=== PATIENT | male | born 1950 | race Hispanic/Latino ===

== ENCOUNTER 2017-09-18 17:46 | Inpatient (IN) | payer MEDICARE, OTHER ==
[2017-09-18] MEDS ORDERED: Sodium Chloride 0.9% 1,000 ML IV STA (18:16)
--- NOTE | 2017-09-18 18:28 | RAD ---
HISTORY: fever chest pain COMPARISON: No prior. FINDINGS: LUNGS: The lungs are well inflated and clear. There is bibasilar atelectasis. No lobar pneumonia. PLEURA: No significant pleural effusion identified, no pneumothorax apparent. CARDIOVASCULAR: Normal. OSSEOUS STRUCTURES: No significant abnormalities. VISUALIZED UPPER ABDOMEN: Normal. OTHER FINDINGS: None. IMPRESSION: No active pulmonary disease.
[2017-09-18 18:30] LABS: BASO # 0.1 K/uL (0.0-0.2); BASO % 0.6 % (0.0-2.0); EOS # 0.2 K/uL (0.0-0.7); EOS % 1.4 % (0.0-4.0); LYMPH # 1.2 K/uL (1.0-4.3); LYMPH % 11.4 % (20.0-40.0); MEAN CELL VOLUME 101.7 fl (80.0-94.0); MEAN CORPUSCULAR HEMOGLOBIN 33.9 pg (27.0-31.0); MEAN CORPUSCULAR HGB CONC 33.3 g/dL (33.0-37.0); MONO # 1.6 K/uL (0.0-0.8); MONO % 14.8 % (0.0-10.0); NEUT # 7.6 K/uL (1.8-7.0); NEUT % 71.8 % (50.0-75.0); RED CELL DISTRIBUTION WIDTH 13.5 % (11.5-14.5); WHITE BLOOD COUNT 10.5 K/uL (4.8-10.8)
[2017-09-18 18:42] LABS: VENOUS BLOOD GAS BASE EXCESS 1.7 mmol/L (0.0-2.0); VENOUS BLOOD GAS PCO2 45 mmHg (40-60); VENOUS BLOOD PH 7.39 (7.32-7.43)
[2017-09-18 18:42] LABS: ALB/GLOB RATIO 1.4 (1.0-2.1); ALKALINE PHOSPHATASE 78 U/L (38-126); ALT/SGPT 38 U/L (21-72); AST/SGOT 22 U/L (17-59); BLOOD UREA NITROGEN 15 mg/dl (9-20); CARBON DIOXIDE 25 mmol/L (22-30); CHLORIDE 104 mmol/L (98-107); GFR AFRICAN-AMERICAN > 60; GLUCOSE,RANDOM 109 mg/dL (75-110); MAGNESIUM 2.1 MG/DL (1.6-2.3); PHOSPHOROUS 2.6 mg/dl (2.5-4.5); POTASSIUM 3.9 MMOL/L (3.6-5.0); SODIUM 137 mmol/l (132-148); TOTAL PROTEIN 7.7 G/DL (6.3-8.2)
--- NOTE | 2017-09-18 18:48 | ED PDOC ---
HPI: CCC, URI, Sore Throat Time Seen by Provider: 09/18/17 18:04 Chief Complaint (Nursing): Palpitations Chief Complaint (Provider): Tachycardia History Per: Patient History/Exam Limitations: no limitations Onset/Duration Of Symptoms: Days (x1) Current Symptoms Are (Timing): Still Present Location Of Pain: Throat (sore) Associated Symptoms: Fever, Chills, Sore Throat, Cough, Other (chest congestion , runny nose, body aches) Ear Symptoms: Bilateral: None Pain Scale Rating Of: 0 Additional Complaint(s): Edwin Galeano is a 67 year old male, with a past medical history of A-fib, who presents to the emergency department complaining of tachycardia, cough, sore throat, runny nose, and chest congestion onset since last night. Patient states symptoms have been worsening since onset. Patient reports going to work today when she began feeling weak and tired with body aches. Patient presented to urgent care who found him to have a fever and rapid heart rate. Patient has a history of A-fib but underwent ablation x6 weeks ago. Afterwards, he did not need to be in any rate controlling medications. This is the first episode of rapid heart rate since the procedure was done. No further medical complaints. PMD:Antony Brewster Past Medical History Reviewed: Historical Data, Nursing Documentation, Vital Signs Vital Signs: Last Vital Signs Temp 98 F 09/20/17 08:00 Pulse 75 09/20/17 09:00 Resp 20 09/20/17 08:00 BP 119/73 09/20/17 08:46 Pulse Ox 96 09/20/17 08:00 - Medical History PMH: Atrial Fibrillation - Surgical History Surgical History: No Surg Hx - Family History Family History: States: Unknown Family Hx - Social History Current smoker - smoking cessation education provided: No Drugs: Denies - Home Medications Home Medications: Ambulatory Orders Medication Instructions Recorded Apixaban [Eliquis] 5 mg PO BID 09/18/17 Amiodarone [Cordarone] 200 mg PO DAILY 30 Days #30 tab 09/20/17 Oseltamivir [Tamiflu Cap] 75 mg PO BID #6 cap 09/20/17 - Allergies Allergies/Adverse Reactions: Allergies Allergy/AdvReac Type Severity Reaction Status Date / Time No Known Allergies Allergy Verified 09/18/17 17:52 Review of Systems ROS Statement: Except As Marked, All Systems Reviewed And Found Negative (and as per HPI) Constitutional: Positive for: Fever, Chills, Malaise, Other (body aches) ENT: Positive for: Nose Discharge Respiratory: Positive for: Cough, Other (chest congestion) Physical Exam - Reviewed Nursing Documentation Reviewed: Yes Vital Signs Reviewed: Yes - Physical Exam Appears: Positive for: Non-toxic, In Acute Distress Head Exam: Positive for: ATRAUMATIC, NORMOCEPHALIC Skin: Positive for: Warm, Dry Eye Exam: Positive for: EOMI, PERRL ENT: Positive for: Pharynx Is (tacky mucus membranes). Negative for: Pharyngeal Erythema, Tonsillar Exudate, Tonsillar Swelling Neck: Positive for: Painless ROM, Supple Cardiovascular/Chest: Positive for: Tachycardia. Negative for: Edema, Murmur Respiratory: Positive for: Normal Breath Sounds. Negative for: Wheezing, Respiratory Distress Gastrointestinal/Abdominal: Positive for: Soft. Negative for: Tenderness Back: Positive for: Normal Inspection. Negative for: Muscle Spasm Extremity: Positive for: Normal ROM. Negative for: Pedal Edema, Deformity Lymphatic: Negative for: Adenopathy Neurologic/Psych: Positive for: Alert. Negative for: Motor/Sensory Deficits - Laboratory Results Result Diagrams: 09/18/17 18:26 09/18/17 18:26 - ECG O2 Sat by Pulse Oximetry: 99 (RA) Pulse Ox Interpretation: Normal - Critical Care Total Time (In Min): 30 Documented Critical Care: Time excludes all time spent performint seperately billable procedures Medical Decision Making Medical Decision Making: Initial Impression: tachycardia and fever. Differential diagnosis includes but not limited to: influenza, Pneumonia, dehydration, rapid A-fib with RVR. Initial Plan: --B-Type Natriuretic Peptide --Comp Metabolic Panel --Magnesium --Phosphorus --Troponin I --CBC w/ differential --PTT --PT --Tylenol 975 mg PO --NS IV 1,000 ml @ 1,000 mls/hr --Chest portable [RAD] --Tamiflu Cap 75 mg PO --Blood culture --Influenza A B --Rapid Strep Group A Antigen --reevaluation -Will treat tachycardia with fluids and Tylenol. Reassess for persistent tachy. 18:24 Chest X-Ray FINDINGS: LUNGS: The lungs are well inflated and clear. There is bibasilar atelectasis. No lobar pneumonia. PLEURA: No significant pleural effusion identified, no pneumothorax apparent. CARDIOVASCULAR: Normal. OSSEOUS STRUCTURES: No significant abnormalities. VISUALIZED UPPER ABDOMEN: Normal. OTHER FINDINGS: None. IMPRESSION: No active pulmonary disease. Pt's HR still persistently elevated in atrial fib. Need to start cardizem drip. 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 Pt to be hospitalized. EDUARDO pt findings and plan of care. EDUARDO Iniguez Hospitalist admitting for PMD Dr Brewster Scribe Attestation: Documented by Clark Ivan, acting as a scribe for Julia Mc MD Provider Scribe Attestation: All medical record entries made by the Scribe were at my direction and personally dictated by me. I have reviewed the chart and agree that the record accurately reflects my personal performance of the history, physical exam, medical decision making, and the department course for this patient. I have also personally directed, reviewed, and agree with the discharge instructions and disposition. Disposition - Clinical Impression Clinical Impression: Flu-like symptoms, Atrial fibrillation with RVR Counseled Patient/Family Regarding: Studies Performed, Diagnosis - Disposition Disposition Time: 20:00 Condition: FAIR - Pt Status Changed To: Hospital Disposition Of: Observation - POA Present On Arrival: None
[2017-09-18 19:00] LABS: PARTIAL THROMBOPLASTIN TIME 41.2 Seconds (25.6-37.1)
--- NOTE | 2017-09-18 20:16 | CP.PCM.HP ---
History of Present Illness - History of Present Illness History of Present Illness: CC: A fib with RVR, flu-like symptoms HPI: This is a 67 y/o male with MHx significant for A fib s/p GREYSON about 6 weeks ago. Patient has not had any A fib symptoms -- palpitations, etc. since that time. Since yesterday, he developed flu-like symptoms including sore throat, malaise, fevers, and myalgias. He went to the pharmacy to get Tamiflu, and there , was found to be in A fib with RVR and was referred to the ER. Denies any CP, SOB. Denies n/v/d. Patient did have the flu shot this year. PCP: [facility] Installer: Vipul ROS: 14 systems reviewed, negative other than HPI MHx: A fib SHx: Radiofrequency ablation 6 weeks prior Allergies: NKDA Medications: As per med rec Family Hx: Reviewed, no relevant findings Social Hx: lives nearby, no tobacco, drinks 3-4 drinks daily Surrogate: Present on Admission - Present on Admission Any Indicators Present on Admission: No Past Patient History - Past Social History Drugs: Denies - CARDIAC Hx Atrial Fibrillation: Yes Meds Allergies/Adverse Reactions: Allergies Allergy/AdvReac Type Severity Reaction Status Date / Time No Known Allergies Allergy Verified 09/18/17 17:52 Physical Exam - Constitutional Appears: No Acute Distress - Head Exam Head Exam: ATRAUMATIC, NORMOCEPHALIC - Eye Exam Eye Exam: EOMI, PERRL - ENT Exam ENT Exam: Mucous Membranes Moist - Neck Exam Neck exam: Positive for: Full Rom - Respiratory Exam Respiratory Exam: Clear to Auscultation Bilateral, NORMAL BREATHING PATTERN - Cardiovascular Exam Cardiovascular Exam: Tachycardia, +S1, +S2 - GI/Abdominal Exam GI & Abdominal Exam: Normal Bowel Sounds, Soft - Extremities Exam Extremities exam: Positive for: full ROM, normal inspection - Neurological Exam Neurological exam: Alert, CN II-XII Intact, Oriented x3 - Psychiatric Exam Psychiatric exam: Normal Affect, Normal Mood Results - Vital Signs Recent Vital Signs: Last Vital Signs Temp 100.8 F H 09/18/17 18:20 Pulse 144 H 09/18/17 17:52 Resp 16 09/18/17 17:52 BP 132/71 09/18/17 17:52 Pulse Ox 99 09/18/17 19:05 - Labs Result Diagrams: 09/18/17 18:26 09/18/17 18:26 Labs: Laboratory Results - last 24 hr 09/18/17 09/18/17 09/18/17 18:15 18:15 18:26 WBC 10.5 RBC 4.43 Hgb 15.0 Hct 45.0 MCV 101.7 H MCH 33.9 H MCHC 33.3 RDW 13.5 Plt Count 174 MPV 9.0 Neut % (Auto) 71.8 Lymph % (Auto) 11.4 L Glades % (Auto) 14.8 H Eos % (Auto) 1.4 Baso % (Auto) 0.6 Neut # 7.6 H Lymph # 1.2 Glades # 1.6 H Eos # 0.2 Baso # 0.1 PT INR APTT pO2 VBG pH VBG pCO2 VBG HCO3 VBG Total CO2 VBG O2 Sat (Calc) VBG Base Excess VBG Potassium Glucose Lactate FiO2 Sodium Potassium Chloride Carbon Dioxide Anion Gap BUN Creatinine Est GFR ( Amer) Est GFR (Non-Af Amer) Random Glucose Calcium Phosphorus Magnesium Total Bilirubin AST ALT Alkaline Phosphatase Troponin I NT-Pro-B Natriuret Pep Total Protein Albumin Globulin Albumin/Globulin Ratio Venous Blood Potassium Influenza Typ A,B (EIA) Negative for flu a/b Grp A Beta Strep Ag Negative 09/18/17 09/18/17 09/18/17 18:26 18:26 18:30 WBC RBC Hgb Hct MCV MCH MCHC RDW Plt Count MPV Neut % (Auto) Lymph % (Auto) Glades % (Auto) Eos % (Auto) Baso % (Auto) Neut # Lymph # Glades # Eos # Baso # PT 13.4 H INR 1.2 APTT 41.2 H pO2 17 L VBG pH 7.39 VBG pCO2 45 VBG HCO3 24.2 VBG Total CO2 28.6 H VBG O2 Sat (Calc) 35.2 L VBG Base Excess 1.7 VBG Potassium 3.8 Glucose 115 H Lactate 1.1 FiO2 21.0 Sodium 137 136.0 Potassium 3.9 Chloride 104 104.0 Carbon Dioxide 25 Anion Gap 12 BUN 15 Creatinine 0.8 Est GFR ( Amer) > 60 Est GFR (Non-Af Amer) > 60 Random Glucose 109 Calcium 9.0 Phosphorus 2.6 Magnesium 2.1 Total Bilirubin 1.0 AST 22 ALT 38 Alkaline Phosphatase 78 Troponin I < 0.0120 NT-Pro-B Natriuret Pep 410 Total Protein 7.7 Albumin 4.5 Globulin 3.2 Albumin/Globulin Ratio 1.4 Venous Blood Potassium 3.8 Influenza Typ A,B (EIA) Grp A Beta Strep Ag Assessment & Plan (1) Atrial fibrillation with RVR Assessment and Plan: 67 y/o male with flu-like symptoms and A fib with RVR even after recent GREYSON. 1) A fib with RVR -Admit tele -Serial trops -AM EKG -On dilt gtt -Continue Eliquis -Consult Vipul in AM 2) Flu like symptoms, flu negative as of now -Given symptoms, will continue tamiflu for now 3) DVT PPx -- on Eliquis Status: Acute (2) Flu-like symptoms Status: Acute (3) DVT prophylaxis Status: Acute
[2017-09-18] MEDS ORDERED: diltiaZEM 100 mg Vial ( ADD-VANTAGE ) IV ONE (20:35)
--- NOTE | 2017-09-19 10:55 | CP.PCM.CON ---
History of Present Illness - History of Present Illness History of Present Illness: 67 yo male with history of paroxysmal atrial fibrillation s/p afib ablation at [facility] 6 wks ago. Pt with recurrent rapid atrial fibrillation in the setting of fever and URI. Denies cp , sob or leg swelling. Past Patient History - Past Medical History & Family History Past Medical History?: Yes - Past Social History Smoking Status: Former Smoker - CARDIAC Hx Cardiac Disorders: Yes Hx Atrial Fibrillation: Yes - PULMONARY Hx Respiratory Disorders: No - NEUROLOGICAL Hx Neurological Disorder: No - HEENT Hx HEENT Problems: No - RENAL Hx Chronic Kidney Disease: No - ENDOCRINE/METABOLIC Hx Endocrine Disorders: No - HEMATOLOGICAL/ONCOLOGICAL Hx Blood Disorders: No Hx AIDS: No Hx Human Immunodeficiency Virus (HIV): No - INTEGUMENTARY Hx Dermatological Problems: No - MUSCULOSKELETAL/RHEUMATOLOGICAL Hx Musculoskeletal Disorders: No Hx Falls: No - GASTROINTESTINAL Hx Gastrointestinal Disorders: No - GENITOURINARY/GYNECOLOGICAL Hx Genitourinary Disorders: No - PSYCHIATRIC Hx Psychophysiologic Disorder: No Hx Substance Use: No - SURGICAL HISTORY Hx Surgeries: Yes (Radio Frequency Ablation) - ANESTHESIA Hx Anesthesia: Yes Hx Anesthesia Reactions: No Meds Allergies/Adverse Reactions: Allergies Allergy/AdvReac Type Severity Reaction Status Date / Time No Known Allergies Allergy Verified 09/18/17 17:52 - Medications Medications: Current Medications Apixaban (Eliquis) 5 mg PO BID [facility] PRN Reason: Protocol Last Admin: 09/19/17 09:29 Dose: 5 mg Diltiazem HCl (Cardizem) 30 mg PO TID [facility] Last Admin: 09/19/17 09:27 Dose: 30 mg Diltiazem HCl 100 mg/ Sodium (Chloride) 100 mls @ 5 mls/hr IV .Q20H ONE; 5 MG/ HR PRN Reason: Protocol Stop: 09/19/17 16:14 Last Admin: 09/18/17 20:52 Dose: 5 mg/hr, 5 mls/hr Oseltamivir Phosphate (Tamiflu Cap) 75 mg PO BID [facility] PRN Reason: Protocol Last Admin: 09/19/17 09:29 Dose: 75 mg Physical Exam - Head Exam Head Exam: NORMAL INSPECTION - ENT Exam ENT Exam: Mucous Membranes Moist - Respiratory Exam Respiratory Exam: Clear to Auscultation Bilateral - Cardiovascular Exam Cardiovascular Exam: REGULAR RHYTHM - GI/Abdominal Exam GI & Abdominal Exam: Normal Bowel Sounds - Extremities Exam Extremities exam: Positive for: normal inspection Results - Vital Signs Recent Vital Signs: Last Vital Signs Temp 98.5 F 09/19/17 08:00 Pulse 86 09/19/17 09:27 Resp 20 09/19/17 08:00 BP 107/60 09/19/17 09:27 Pulse Ox 95 09/19/17 08:00 - Labs Result Diagrams: 09/18/17 18:26 09/18/17 18:26 Labs: Laboratory Results - last 24 hr 09/18/17 09/18/17 09/18/17 18:15 18:15 18:26 WBC 10.5 RBC 4.43 Hgb 15.0 Hct 45.0 MCV 101.7 H MCH 33.9 H MCHC 33.3 RDW 13.5 Plt Count 174 MPV 9.0 Neut % (Auto) 71.8 Lymph % (Auto) 11.4 L Rice % (Auto) 14.8 H Eos % (Auto) 1.4 Baso % (Auto) 0.6 Neut # 7.6 H Lymph # 1.2 Rice # 1.6 H Eos # 0.2 Baso # 0.1 PT INR APTT pO2 VBG pH VBG pCO2 VBG HCO3 VBG Total CO2 VBG O2 Sat (Calc) VBG Base Excess VBG Potassium Glucose Lactate FiO2 Sodium Potassium Chloride Carbon Dioxide Anion Gap BUN Creatinine Est GFR ( Amer) Est GFR (Non-Af Amer) Random Glucose Calcium Phosphorus Magnesium Total Bilirubin AST ALT Alkaline Phosphatase Troponin I NT-Pro-B Natriuret Pep Total Protein Albumin Globulin Albumin/Globulin Ratio Venous Blood Potassium Influenza Typ A,B (EIA) Negative for flu a/b Grp A Beta Strep Ag Negative 09/18/17 09/18/17 09/18/17 18:26 18:26 18:30 WBC RBC Hgb Hct MCV MCH MCHC RDW Plt Count MPV Neut % (Auto) Lymph % (Auto) Rice % (Auto) Eos % (Auto) Baso % (Auto) Neut # Lymph # Rice # Eos # Baso # PT 13.4 H INR 1.2 APTT 41.2 H pO2 17 L VBG pH 7.39 VBG pCO2 45 VBG HCO3 24.2 VBG Total CO2 28.6 H VBG O2 Sat (Calc) 35.2 L VBG Base Excess 1.7 VBG Potassium 3.8 Glucose 115 H Lactate 1.1 FiO2 21.0 Sodium 137 136.0 Potassium 3.9 Chloride 104 104.0 Carbon Dioxide 25 Anion Gap 12 BUN 15 Creatinine 0.8 Est GFR ( Amer) > 60 Est GFR (Non-Af Amer) > 60 Random Glucose 109 Calcium 9.0 Phosphorus 2.6 Magnesium 2.1 Total Bilirubin 1.0 AST 22 ALT 38 Alkaline Phosphatase 78 Troponin I < 0.0120 NT-Pro-B Natriuret Pep 410 Total Protein 7.7 Albumin 4.5 Globulin 3.2 Albumin/Globulin Ratio 1.4 Venous Blood Potassium 3.8 Influenza Typ A,B (EIA) Grp A Beta Strep Ag 09/19/17 04:30 WBC RBC Hgb Hct MCV MCH MCHC RDW Plt Count MPV Neut % (Auto) Lymph % (Auto) Rice % (Auto) Eos % (Auto) Baso % (Auto) Neut # Lymph # Rice # Eos # Baso # PT INR APTT pO2 VBG pH VBG pCO2 VBG HCO3 VBG Total CO2 VBG O2 Sat (Calc) VBG Base Excess VBG Potassium Glucose Lactate FiO2 Sodium Potassium Chloride Carbon Dioxide Anion Gap BUN Creatinine Est GFR ( Amer) Est GFR (Non-Af Amer) Random Glucose Calcium Phosphorus Magnesium Total Bilirubin AST ALT Alkaline Phosphatase Troponin I 0.0140 NT-Pro-B Natriuret Pep Total Protein Albumin Globulin Albumin/Globulin Ratio Venous Blood Potassium Influenza Typ A,B (EIA) Grp A Beta Strep Ag Assessment & Plan - Assessment and Plan (Free Text) Assessment: 67 year old male with recurrent atrial fibrillation s/p ablation in the setting of fever URI Currently in NSR EKG ? st elevation 2, 3 avf could represent pericarditis vs normal variant No Friction Rub on Exam No chest pain Plan: #1 Start Amiodarone 200mg qd #2 Stop Cardiazem gtt #3 Continue Eliquis #4 Echocardiogram today #5 Monitor Tele 24 hrs on oral Amiodarone #6 If pt in NSR in am can be dc'd/ will need f/u with EP #7 Would Continue Amiodarone as outpt
--- NOTE | 2017-09-19 11:16 | RAD ---
HISTORY: fever, cough COMPARISON: Chest radiograph dated 09/18/2017. FINDINGS: LUNGS: Bibasilar atelectasis. PLEURA: No significant pleural effusion identified, no pneumothorax apparent. CARDIOVASCULAR: Stably prominent cardiomediastinal silhouette. OSSEOUS STRUCTURES: No significant abnormalities. VISUALIZED UPPER ABDOMEN: Normal. OTHER FINDINGS: None. IMPRESSION: Bibasilar atelectasis.
--- NOTE | 2017-09-19 11:17 | CARD ---
APPROVED REPORT EKG Measurement Heart [id number] <Conclusion> Atrial fibrillation Early repolarization Abnormal ECG
--- NOTE | 2017-09-19 11:19 | CARD ---
APPROVED REPORT EKG Measurement Heart [id number] <Conclusion> Atrial fibrillation with rapid ventricular response Abnormal ECG
--- NOTE | 2017-09-19 13:56 | CP.PCM.PN ---
<Tiffany Harman - Last Filed: 09/19/17 15:09> Subjective - Date & Time of Evaluation Date of Evaluation: 09/19/17 Time of Evaluation: 08:00 - Subjective Subjective: No acute overnight events. Pt seen and evaluated at the bedside. No complaints. Denies chest pain, palpatations, SOB, fever, chills. Reports cough that is improving, minimal sputum production. No complaints. Objective - Vital Signs/Intake and Output Vital Signs (last 24 hours): Temp Pulse Resp BP Pulse Ox 98 F 65 20 98/63 L 97 09/19/17 12:00 09/19/17 12:00 09/19/17 12:00 09/19/17 12:00 09/19/17 12:00 - Medications Medications: Current Medications Amiodarone HCl (Cordarone) 200 mg PO DAILY [facility] Last Admin: 09/19/17 11:42 Dose: 200 mg Apixaban (Eliquis) 5 mg PO BID [facility] PRN Reason: Protocol Last Admin: 09/19/17 09:29 Dose: 5 mg Oseltamivir Phosphate (Tamiflu Cap) 75 mg PO BID [facility] PRN Reason: Protocol Last Admin: 09/19/17 09:29 Dose: 75 mg Thiamine HCl (Vitamin B1 Tab) 100 mg PO DAILY [facility] - Labs Labs: 09/18/17 18:26 09/18/17 18:26 PT 13.4 Seconds (9.8-13.1) H 09/18/17 18:26 INR 1.2 (0.9-1.2) 09/18/17 18:26 APTT 41.2 Seconds (25.6-37.1) H 09/18/17 18:26 - Constitutional Appears: Well, Non-toxic, No Acute Distress - Head Exam Head Exam: ATRAUMATIC, NORMAL INSPECTION - ENT Exam ENT Exam: Mucous Membranes Moist - Respiratory Exam Respiratory Exam: Clear to Ausculation Bilateral. absent: Rales, Wheezes - Cardiovascular Exam Cardiovascular Exam: REGULAR RHYTHM, +S1, +S2. absent: Murmur - GI/Abdominal Exam GI & Abdominal Exam: Soft, Normal Bowel Sounds. absent: Distended, Tenderness - Extremities Exam Extremities Exam: absent: Calf Tenderness, Pedal Edema - Neurological Exam Neurological Exam: Alert, Awake, Oriented x3 - Psychiatric Exam Psychiatric exam: Normal Mood Assessment and Plan - Assessment and Plan (Free Text) Assessment: This is a 67 y/o male with MHx significant for A fib s/p GREYSON about 6 weeks ago , admitted for Afibb with RVR in the setting of a URI. #Afibb with RVR -Repeat am EKG: Afibb, HR 77. 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 Has an appt in October with strategic client executive -Bruce/w Stevie -Aleciazem drip overnight, pt was rate controlled this morning with intermittent episodes of tachycardia. Now started on Amiodorone as per [employer] Supervisor, Dr. Matthew -Cardio consulted: Possibly pericarditis in setting or URI, started on Amiodorone, Cardizem D/C'd. Tele monitoring for 24 hours. Poss D/C in morning if NSR in the am --F/U TSH and ECHO today #Cough, resolving -Patient reports congestion, fever, headache, malaise, and mild productive cough. Pt reports cough is improving. Likely a viral syndrome. Not likely PNU as repeat Cxray negative for infiltrates -Febrile on admission, low grade fever this morning -Empirically started Tamiflu; Influenza negative; -Cxray: no acute cardiopulmonary findings -Sputum Cx ordered #DVT ppx -Eliquis #Alcohol-use -Pt reports drinking alcohol daily; questionnable alcohol abuse -MCV>100 -Thiamine supplemented -B12 IM x1 -F/U B12, Folate -Monitor for signs of withdrawal <Ana Siegel - Last Filed: 09/19/17 15:16> Objective - Vital Signs/Intake and Output Vital Signs (last 24 hours): Temp Pulse Resp BP Pulse Ox 98 F 65 20 98/63 L 97 09/19/17 12:00 09/19/17 12:00 09/19/17 12:00 09/19/17 12:00 09/19/17 12:00 - Medications Medications: Current Medications Amiodarone HCl (Cordarone) 200 mg PO DAILY [facility] Last Admin: 09/19/17 11:42 Dose: 200 mg Apixaban (Eliquis) 5 mg PO BID [facility] PRN Reason: Protocol Last Admin: 09/19/17 09:29 Dose: 5 mg Oseltamivir Phosphate (Tamiflu Cap) 75 mg PO BID [facility] PRN Reason: Protocol Last Admin: 09/19/17 09:29 Dose: 75 mg Thiamine HCl (Vitamin B1 Tab) 100 mg PO DAILY [facility] - Labs Labs: 09/18/17 18:26 09/18/17 18:26 PT 13.4 Seconds (9.8-13.1) H 09/18/17 18:26 INR 1.2 (0.9-1.2) 09/18/17 18:26 APTT 41.2 Seconds (25.6-37.1) H 09/18/17 18:26 Attending/Attestation - Attestation I have personally seen and examined this patient.: Yes I have fully participated in the care of the patient.: Yes I have reviewed all pertinent clinical information, including history, physical exam and plan: Yes Notes (Text): Atrial Fibrillation with RVR s/p recent Radiofreq Ablation - Cardizem drip started - tapered off - Amiodarone started by DR Matthew -ECHO -check TSH Viral Syndrome - Flu like sxs - Influenxa neg - empirically started on Tamiflu - CXR : neg Macrocytosis pt admits to daily Alcohol use - 3 drinks perday - no signs of withdrawal at present - start THiamine - Ativan prn
[2017-09-19 15:05] LABS: T4 5.35 ug/dl (5.5-11.0)
[2017-09-19 15:18] LABS: THYROID STIMULATING HORMONE 4.46 mIU/ML (0.46-4.68)
[2017-09-19 19:34] LABS: RBC URINE 3 /hpf (0-3); URINE BILIRUBIN NEGATIVE (NEGATIVE); URINE BLOOD NEGATIVE (NEGATIVE); URINE COLOR AMBER (YELLOW); URINE GLUCOSE (UA) 50 mg/dL (Normal); URINE KETONE TRACE mg/dL (NEGATIVE); URINE LEUKOCYTE ESTERASE NEG Leu/uL (Negative); URINE PROTEIN NEGATIVE (NEGATIVE); WBC URINE 1 /hpf (0-5)
[2017-09-20 01:05] LABS: FOLATE 8.3 ng/mL
[2017-09-20 08:01] VITALS: RESP 20
--- NOTE | 2017-09-20 09:29 | CP.PCM.DIS ---
Provider - Provider Date of Admission: 09/19/17 19:10 Attending physician: Janeth Iniguez MD Time Spent in preparation of Discharge (in minutes): 30 Diagnosis - Discharge Diagnosis (1) Atrial fibrillation with RVR Status: Resolved Hospital Course - Lab Results Lab Results: Micro Results 09/18/17 18:15 Blood-Venous Blood Culture - Preliminary NO GROWTH AFTER 24 HOURS 09/18/17 18:30 Blood-Venous Blood Culture - Preliminary NO GROWTH AFTER 24 HOURS Most Recent Lab Values WBC 10.5 K/uL (4.8-10.8) 09/18/17 18:26 RBC 4.43 Mil/uL (4.40-5.90) 09/18/17 18:26 Hgb 15.0 g/dL (12.0-18.0) 09/18/17 18:26 Hct 45.0 % (35.0-51.0) 09/18/17 18:26 MCV 101.7 fl (80.0-94.0) H 09/18/17 18:26 MCH 33.9 pg (27.0-31.0) H 09/18/17 18:26 MCHC 33.3 g/dL (33.0-37.0) 09/18/17 18:26 RDW 13.5 % (11.5-14.5) 09/18/17 18:26 Plt Count 174 K/uL (130-400) 09/18/17 18:26 MPV 9.0 fl (7.2-11.7) 09/18/17 18:26 Neut % (Auto) 71.8 % (50.0-75.0) 09/18/17 18:26 Lymph % (Auto) 11.4 % (20.0-40.0) L 09/18/17 18:26 Deuel % (Auto) 14.8 % (0.0-10.0) H 09/18/17 18:26 Eos % (Auto) 1.4 % (0.0-4.0) 09/18/17 18:26 Baso % (Auto) 0.6 % (0.0-2.0) 09/18/17 18:26 Neut # 7.6 K/uL (1.8-7.0) H 09/18/17 18:26 Lymph # 1.2 K/uL (1.0-4.3) 09/18/17 18:26 Deuel # 1.6 K/uL (0.0-0.8) H 09/18/17 18:26 Eos # 0.2 K/uL (0.0-0.7) 09/18/17 18:26 Baso # 0.1 K/uL (0.0-0.2) 09/18/17 18:26 PT 13.4 Seconds (9.8-13.1) H 09/18/17 18:26 INR 1.2 (0.9-1.2) 09/18/17 18:26 APTT 41.2 Seconds (25.6-37.1) H 09/18/17 18:26 pO2 17 mm/Hg (30-55) L 09/18/17 18:30 VBG pH 7.39 (7.32-7.43) 09/18/17 18:30 VBG pCO2 45 mmHg (40-60) 09/18/17 18:30 VBG HCO3 24.2 mmol/L 09/18/17 18:30 VBG Total CO2 28.6 mmol/L (22-28) H 09/18/17 18:30 VBG O2 Sat (Calc) 35.2 % (40-65) L 09/18/17 18:30 VBG Base Excess 1.7 mmol/L (0.0-2.0) 09/18/17 18:30 VBG Potassium 3.8 mmol/L (3.6-5.2) 09/18/17 18:30 Sodium 136.0 mmol/L (132-148) 09/18/17 18:30 Chloride 104.0 mmol/L (98-107) 09/18/17 18:30 Glucose 115 mg/dL (75-110) H 09/18/17 18:30 Lactate 1.1 mmol/L (0.7-2.1) 09/18/17 18:30 FiO2 21.0 % 09/18/17 18:30 Sodium 137 mmol/l (132-148) 09/18/17 18:26 Potassium 3.9 MMOL/L (3.6-5.0) 09/18/17 18:26 Chloride 104 mmol/L (98-107) 09/18/17 18:26 Carbon Dioxide 25 mmol/L (22-30) 09/18/17 18:26 Anion Gap 12 (10-20) 09/18/17 18:26 BUN 15 mg/dl (9-20) 09/18/17 18:26 Creatinine 0.8 mg/dl (0.8-1.5) 09/18/17 18:26 Est GFR ( Amer) > 60 09/18/17 18:26 Est GFR (Non-Af Amer) > 60 09/18/17 18:26 Random Glucose 109 mg/dL (75-110) 09/18/17 18:26 Calcium 9.0 mg/dL (8.4-10.2) 09/18/17 18:26 Phosphorus 2.6 mg/dl (2.5-4.5) 09/18/17 18:26 Magnesium 2.1 MG/DL (1.6-2.3) 09/18/17 18:26 Total Bilirubin 1.0 mg/dl (0.2-1.3) 09/18/17 18:26 AST 22 U/L (17-59) 09/18/17 18:26 ALT 38 U/L (21-72) 09/18/17 18:26 Alkaline Phosphatase 78 U/L (38-126) 09/18/17 18:26 Troponin I < 0.0120 ng/mL (0.00-0.120) 09/19/17 12:37 NT-Pro-B Natriuret Pep 410 pg/ml (0-900) 09/18/17 18:26 Total Protein 7.7 G/DL (6.3-8.2) 09/18/17 18:26 Albumin 4.5 g/dL (3.5-5.0) 09/18/17 18:26 Globulin 3.2 gm/dL (2.2-3.9) 09/18/17 18:26 Albumin/Globulin Ratio 1.4 (1.0-2.1) 09/18/17 18:26 Vitamin B12 353 pg/mL (239-931) 09/19/17 14:33 Folate 8.3 ng/mL 09/19/17 14:33 Thyroxine (T4) 5.35 ug/dl (5.5-11.0) L 09/19/17 14:33 TSH 3rd Generation 4.46 mIU/ML (0.46-4.68) 09/19/17 14:33 Venous Blood Potassium 3.8 mmol/L (3.6-5.2) 09/18/17 18:30 Urine Color Allyn (YELLOW) 09/19/17 19:06 Urine Clarity Clear (Clear) 09/19/17 19:06 Urine pH 6.0 (5.0-8.0) 09/19/17 19:06 Ur Specific [place] 1.024 (1.003-1.030) 09/19/17 19:06 Urine Protein Negative mg/dL (NEGATIVE) 09/19/17 19:06 Urine Glucose (UA) 50 mg/dL (Normal) 09/19/17 19:06 Urine Ketones Trace mg/dL (NEGATIVE) 09/19/17 19:06 Urine Blood Negative (NEGATIVE) 09/19/17 19:06 Urine Nitrate Negative (NEGATIVE) 09/19/17 19:06 Urine Bilirubin Negative (NEGATIVE) 09/19/17 19:06 Urine Urobilinogen 4.0 mg/dL (0.2-1.0) 09/19/17 19:06 Ur Leukocyte Esterase Neg Cedric/uL (Negative) 09/19/17 19:06 Urine RBC (Auto) 3 /hpf (0-3) 09/19/17 19:06 Urine Microscopic WBC 1 /hpf (0-5) 09/19/17 19:06 Influenza Typ A,B (EIA) Negative for flu a/b (NEGATIVE) 09/18/17 18:15 Grp A Beta Strep Ag Negative (NEGATIVE) 09/18/17 18:15 - Hospital Course Hospital Course: Admission Date: 09/18/17 Discharge Diagnosis: Atrial Fibrillation with RVR Hospital Course: 67 y/o male with PMHx significant for A fib on Eliquis s/p GREYSON about 6 weeks ago , admitted for Afibb with RVR in the setting of a URI. Pt was admitted to Tele, started on a cardizem drip and became rate controlled overnight. CBC, CMP, Blood cultures and Cxray normal. Patient was seen by his animal rescuer, Dr. Matthew , who started him on Amiodorone and discontinued Cardizem. Echo was completed showing normal LV function with mild aortic and mitral regurgitation. After 24 hour tele monitoring on Amiodorone, pt was discharged on Elliquis and Amiodorone , as per animal rescuer recommendations. Advised to complete influenza treatment as well. Discharge Medications: Elliquis 5mg PO daily Amiodorone 200mg PO Daily Oseltamivir (Tamiflu) 75mg PO BID x 6 days Condition upon discharge: Fair Activity: Ambulating without assistance Discharge Instruction: Continue taking medications, F/U with PMD and [facility] outpatient. Pt made aware and has appt in October. Discharge Exam - Head Exam Head Exam: ATRAUMATIC, NORMAL INSPECTION - Eye Exam Eye Exam: Normal appearance - ENT Exam ENT Exam: Mucous Membranes Moist - Neck Exam Neck exam: Full Rom - Respiratory Exam Respiratory Exam: Clear to PA & Lateral. absent: Rales, Wheezes, Respiratory Distress - Cardiovascular Exam Cardiovascular Exam: REGULAR RHYTHM, +S1, +S2. absent: Tachycardia, JVD, Systolic Murmur - GI/Abdominal Exam GI & Abdominal Exam: Normal Bowel Sounds, Soft. absent: Distended, Tenderness - Extremities Exam Extremities exam: normal inspection - Neurological Exam Neurological exam: Alert, Oriented x3 - Psychiatric Exam Psychiatric exam: Normal Affect - Skin Skin Exam: Normal Color Discharge Plan - Discharge Medications Prescriptions: Amiodarone [Cordarone] 200 mg PO DAILY 30 Days #30 tab Oseltamivir [Tamiflu Cap] 75 mg PO BID #6 cap - Follow Up Plan Condition: STABLE Disposition: HOME/ ROUTINE Instructions: Atrial Fibrillation (DC) Additional Instructions: Follow up with PMD and Cardiology, Dr. Matthew. Continue taking Amiodorone as per animal rescuer.
--- NOTE | 2017-09-20 11:13 | CARD ---
APPROVED REPORT EXAM: Two-dimensional and M-mode echocardiogram with Doppler and color Doppler. Other Information Quality : GoodRhythm : NSR INDICATION Pericardial Effusion 2D DIMENSIONS IVSd0.98 (0.7-1.1cm)LVDd5.09 (3.9-5.9cm) LVOT Diameter2.41 (1.8-2.4cm)PWd1.03 (0.7-1.1cm) IVSs1.29 (0.8-1.2cm)LVDs3.72 (2.5-4.0cm) FS (%) 27.0 %PWs1.43 (0.8-1.2cm) M-Mode DIMENSIONS Left Atrium (MM)5.26 (2.5-4.0cm)IVSd0.93 (0.7-1.1cm) Aortic Root3.44 (2.2-3.7cm)LVDd6.39 (4.0-5.6cm) Aortic Cusp Exc.2.45 (1.5-2.0cm)PWd1.09 (0.7-1.1cm) IVSs1.82 cmFS (%) 42 % LVDs3.71 (2.0-3.8cm)PWs1.46 cm Aortic Valve AI P 1/2 [id number] Mitral Valve MV E Cmdrbxxs07.6cm/sMV DECEL [id number] A Byrfievx06.0cm/s MV [id number]/A ratio1.0MVA (PHT)3.50cm2 TDI E/Lateral E'0.0E/Medial E'0.0 Pulmonary Valve PV Peak Fyijhymv01.7cm/s Tricuspid Valve TR Peak [id number]/sRAP [id number] Peak Gr.19mmHg [id number] LEFT VENTRICLE The left ventricle is normal size. There is normal left ventricular wall thickness. The left ventricular function is normal. The left ventricular ejection fraction is 60% There is normal LV segmental wall motion. The left ventricular diastolic function is normal. No left ventricle thrombus noted on this study. There is no ventricular septal defect visualized. There is no left ventricular aneurysm. There is no mass noted in the left ventricle. RIGHT VENTRICLE The right ventricle is normal size. There is normal right ventricular wall thickness. The right ventricular systolic function is normal. ATRIA The left atrium size is normal. The right atrium size is normal. The interatrial septum is intact with no evidence for an atrial septal defect. AORTIC VALVE The aortic valve is mildly sclerotic. There is mild aortic regurgitation. There is no aortic valvular stenosis. There is no aortic valvular vegetation. MITRAL VALVE The mitral valve is normal in structure. There is no evidence of mitral valve prolapse. There is no mitral valve stenosis. Mitral regurgitation is trace to mild. TRICUSPID VALVE The tricuspid valve is normal in structure. There is no tricuspid valve regurgitation noted. There is no tricuspid valve prolapse or vegetation. There is no tricuspid valve stenosis. PULMONIC VALVE The pulmonary valve is normal in structure. There is no pulmonic valvular regurgitation. There is no pulmonic valvular stenosis. GREAT VESSELS The aortic root is normal in size. The ascending aorta is normal in size. The IVC is normal in size and collapses >50% with inspiration. PERICARDIAL EFFUSION The pericardium appears normal. There is no pleural effusion. <Conclusion> Normal LV Systolic function Mild Aortic Insufficiency Trace to Mild Mitral Regurgitation
--- NOTE | 2017-09-20 11:42 | CP.PCM.PN ---
Subjective - Date & Time of Evaluation Date of Evaluation: 09/20/17 Time of Evaluation: 11:41 - Subjective Subjective: stable Objective - Vital Signs/Intake and Output Vital Signs (last 24 hours): Temp Pulse Resp BP Pulse Ox 98 F 71 20 119/73 96 09/20/17 08:00 09/20/17 08:46 09/20/17 08:00 09/20/17 08:46 09/20/17 08:00 - Medications Medications: Current Medications Amiodarone HCl (Cordarone) 200 mg PO DAILY [facility] Last Admin: 09/20/17 08:46 Dose: 200 mg Apixaban (Eliquis) 5 mg PO BID [place] PRN Reason: Protocol Last Admin: 09/20/17 08:46 Dose: 5 mg Folic Acid (Folic Acid) 1 mg PO DAILY [facility] Last Admin: 09/20/17 08:46 Dose: 1 mg Lorazepam (Ativan) 1 mg IVP Q4 PRN PRN Reason: Symptoms of alcohol withdrawl Oseltamivir Phosphate (Tamiflu Cap) 75 mg PO BID [place] PRN Reason: Protocol Last Admin: 09/20/17 08:47 Dose: 75 mg Thiamine HCl (Vitamin B1 Tab) 100 mg PO DAILY [facility] Last Admin: 09/20/17 08:47 Dose: 100 mg - Labs Labs: 09/18/17 18:26 09/18/17 18:26 PT 13.4 Seconds (9.8-13.1) H 09/18/17 18:26 INR 1.2 (0.9-1.2) 09/18/17 18:26 APTT 41.2 Seconds (25.6-37.1) H 09/18/17 18:26 Assessment and Plan - Assessment and Plan (Free Text) Assessment: DC continue Amiodarone F/u as outpt Ep Re-evaluation
[2017-09-20 12:51] VITALS: BP 119/73; TEMP 98
[2017-09-20 13:15] VITALS: PULSE 75
[2017-09-21 19:47] VITALS: O2SAT 99
== END 2017-09-20 12:57 | disposition home or self-care (01) | DRG 310 ==
LOC: H.ER 17:46 → H.ERHOLD 20:08 → H.TEL 23:04 → OBSVTOIN 09-19 19:10
PROVIDERS: ADMIT Internal Medicine; ATTEND Internal Medicine
DX: I48.0 Paroxysmal atrial fibrillation (principal); B34.9 Viral infection, unspecified; D75.89 Other specified diseases of blood and blood-forming organs; F10.10 Alcohol abuse, uncomplicated; I08.0 Rheumatic disorders of both mitral and aortic valves; Z87.891 Personal history of nicotine dependence